=== PATIENT | female | born 2000 | race Caucasian/White ===

== ENCOUNTER → 2021-05-01 | Outpatient (CLI) | payer OTHER ==
[2021-05-01 08:30] VITALS: BP 107/54
--- NOTE | 2021-05-01 11:36 | Cardiology Stress Test Report ---
Stress Test Report Date of Procedure/Referring: Date of Procedure: May 01, 2021 PCP Inessa Blank MD Admitting Physician Indications: HTN Baseline Heart Rate: 62 Baseline Blood Pressure: Blood Pressure Systolic: 107 Blood Pressure Diastolic: 54 Baseline EKG: Baseline EKG: NSR Summary/Conclusion: Summary: In summary, the patient started exercising with a baseline heart rate, blood pressure and EKG mentioned above Patient was able to exercise for a total of 11 minutes on Delvin protocol, METs 12.1 Maximum heart rate 176 Maximum blood pressure 152/44 Stress EKG, Minimal nondiagnostic changes Recovery EKG , Return to baseline Conclusion: 1. Good exercise tolerance for a total of 11 minutes on Delvin protocol, 12.1 METs, achieving 88 percent of maximum expected heart rate 2. Minimal nondiagnostic EKG changes with exercise returned to baseline during recovery 3. No arrhythmia was noted INESSA BLANK MD May 01, 2021 11:36
== END ==
LOC: CARD 08:00
PROVIDERS: ATTEND Internal Medicine Cardiovascular Disease
DX: I35.1 Nonrheumatic aortic (valve) insufficiency (principal); I10 Essential (primary) hypertension; I25.10 Atherosclerotic heart disease of native coronary artery without angina pectoris
CPT/HCPCS: 93017; 93306